=== PATIENT | male | born 1980 | race Caucasian/White ===

== ENCOUNTER 2018-06-20 10:54 | Emergency (ER) | payer BC ==
[2018-06-20 10:57] VITALS: BMI 27.1
[2018-06-20 10:59] VITALS: RESP 20; TEMP 98.7
[2018-06-20] MEDS ORDERED: Sodium Chloride 0.9% 1,000 ML ONE (11:50)
[2018-06-20] MEDS ORDERED: Sodium Chloride 0.9% 1,000 ML IV ONE (11:56)
--- NOTE | 2018-06-20 12:05 | C.PDOC ---
History Of Present Illness 38-year-old male presents to the emergency department with complaints of epigastric pain which radiates to his back and legs since Thursday06-16-18. Patient states that he took Omeprazole after which he feels better but reports feeling much worse today with severe nausea and vomiting. Patient denies fever, chills, urinary symptoms, and diarrhea. Patient has no history of abdominal surgery and denies drinking alcohol. Time Seen by Provider: 06/20/18 11:18 Chief Complaint (Nursing): Abdominal Pain History Per: Patient History/Exam Limitations: no limitations Onset/Duration Of Symptoms: Days (4) Current Symptoms Are (Timing): Worse Location Of Pain/Discomfort: Epigastric Quality Of Discomfort: "Pain" Associated Symptoms: Nausea, Vomiting. denies: Fever, Chills, Urinary Symptoms Past Medical History Reviewed: Historical Data, Nursing Documentation, Vital Signs Vital Signs: Last Vital Signs Temp 98.7 F 06/20/18 10:57 Pulse 82 06/20/18 10:57 Resp 20 06/20/18 10:57 BP 132/83 06/20/18 10:57 Pulse Ox 100 06/20/18 10:57 - Medical History PMH: Gastritis Surgical History: No Surg Hx Family History: States: No Known Family Hx - Social History Hx Alcohol Use: Yes Hx Substance Use: No - Immunization History Hx Influenza Vaccination: Yes Hx Pneumococcal Vaccination: No Review Of Systems Constitutional: Negative for: Fever, Chills Gastrointestinal: Positive for: Nausea, Vomiting, Abdominal Pain Genitourinary: Negative for: Dysuria, Frequency, Incontinence Physical Exam - Physical Exam Appears: Non-toxic, Other (actively retching) Skin: Normal Color, Warm, Dry Head: Atraumatic, Normacephalic Eye(s): bilateral: Normal Inspection, PERRL, EOMI Oral Mucosa: Moist Neck: Normal, Supple Chest: Symmetrical, No Tenderness Cardiovascular: Rhythm Regular, No Murmur Respiratory: Normal Breath Sounds, No Rales, No Rhonchi, No Wheezing Gastrointestinal/Abdominal: Soft, Tenderness (epigastric and LUQ tenderness) Back: No CVA Tenderness Extremity: Normal ROM, No Tenderness, No Pedal Edema Neurological/Psych: Oriented x3, Normal Speech, Normal Cognition ED Course And Treatment - Laboratory Results Result Diagrams: 06/20/18 12:12 06/20/18 12:12 O2 Sat by Pulse Oximetry: 100 (RA) Pulse Ox Interpretation: Normal - Other Rad XR Obstructive Series X-Ray: Viewed By Me, Read By Radiologist Interpretation: IMPRESSION: Unremarkable radiographs of chest and abdomen. No evidence of mechanical bowel obstruction. - CT Scan/US CT Abdomen and Pelvis Other Rad Studies (CT/US): Read By Radiologist, Radiology Report Reviewed CT/US Interpretation: IMPRESSION: Mild right hydronephrosis and proximal hydroureter up to 3.9 millimeter calculus at the proximal portion of the right ureter. 2 millimeter nonobstructing calculus at the midpole of the right kidney. No evidence of other acute pathology in the abdomen and pelvis. Medical Decision Making Medical Decision Making: Plan: Chemistry Hematology XR Obstructive Series Pepcid 20mg IVP NaCl IV Fluids Zofran 4mg IVP Urinalysis 1255 pt with persistent vomiting and nausea after dose of zofran. reglan ivpb ordered., labs reviewed; pt with large hematuria; consideration for kidney stone. abdominal xray reviewed; large stool and paucity of bowel gas noted; will get non contrast ct to eval for kidney stone and sbo as well as any other a bdominal pathology. . Spoke with Dr. Reardon to clarify CT findings. Dr. Reardon stated that measure ments are not to be in centimeters, but rather in millimeters as seen on CT. Spoke with Dr. Keane who recommends 1gm Rocephin and Flomax to be given in ED. Patient is to f/u outpatient with rx for ceftin and flomax. Disposition Discussed With .: Edison Keane Doctor Will See Patient In The: Office - Disposition Referrals: Edison Keane MD [Staff Provider] - [facility] [Outside] Disposition: HOME/ ROUTINE Disposition Time: 16:03 Condition: IMPROVED Additional Instructions: Beber lquidos en aumento. Cuele la alurina y guarde la crescencio para llevarla al urlogo. Preeti antibiticos y flomax segn lo prescrito. [place] ibuprofeno 600 mg por va oral cada 6 horas. Joel un seguimiento con el Dr. Keane (urlogo) esta semana y tambin en la clnica emdical. Regrese a la mitzy de emergencias para un peor dolor u otras preocupaciones Drink increased fluids. Strain allurine and keep stone to bring to urologist. Take antibiotics and flomax as prescribed. Take ibuprofen 600 mg by mouth every 6 [address]. Follow up with Dr Keane (urologist) this week and in emdical clinic as well. Return to ER for worse pain or other concerns. Prescriptions: Cefuroxime Axetil [Cefuroxime] 500 mg PO BID #20 tablet Ibuprofen [Motrin] 600 mg PO TID #50 tab Tamsulosin [Flomax] 0.4 mg PO DAILY #30 cap Instructions: Renal Colic (DC), How to Strain Your Urine Forms: Gen Discharge Inst Dive[facility], [facility] [facility] (Divehi), Work Excuse - Clinical Impression Clinical Impression: Renal colic on right side, Ureteral calculus, right - PA / OPERATIONS EXECUTIVE / Resident Statement MD/DO has reviewed & agrees with the documentation as recorded. - Scribe Statement The provider has reviewed the documentation as recorded by the Scribe (Cirilo Santoyo) All medical record entries made by the Scribe were at my direction and personally dictated by me. I have reviewed the chart and agree that the record accurately reflects my personal performance of the history, physical exam, medical decision making, and the department course for this patient. I have also personally directed, reviewed, and agree with the discharge instructions and disposition.
[2018-06-20 12:19] LABS: BASO % 0.2 % (0.0-2.0); EOS % 0.1 % (0.0-4.0); LYMPH # 1.1 K/uL (1.0-4.3); LYMPH % 12.1 % (20.0-40.0); MEAN CELL VOLUME 84.3 fL (80.0-94.0); MEAN CORPUSCULAR HEMOGLOBIN 29.3 pg (27.0-31.0); MEAN CORPUSCULAR HGB CONC 34.8 g/dL (33.0-37.0); MEAN PLATELET VOLUME 9.6 fL (7.2-11.7); MONO # 0.5 K/uL (0.0-0.8); MONO % 5.5 % (0.0-10.0); NEUT # 7.4 K/uL (1.8-7.0); NEUT % 82.1 % (50.0-75.0); NRBC % 0.2 % (0.0-2.0); RBC 5.47 Mil/uL (4.40-5.90); RED CELL DISTRIBUTION WIDTH 15.1 % (11.5-14.5)
[2018-06-20 12:30] LABS: ALB/GLOB RATIO 1.4 (1.0-2.1); ALBUMIN 4.9 g/dL (3.5-5.0); ALT/SGPT 34 U/L (21-72); AST/SGOT 30 U/L (17-59); BLOOD UREA NITROGEN 24 mg/dL (9-20); GFR NON-AFRICAN AMERICAN > 60; LIPASE 104 U/L (23-300)
[2018-06-20 12:35] LABS: SQUAMOUS EPITHIAL < 1 /hpf (0-5); URINE BILIRUBIN NEGATIVE (NEGATIVE); URINE BLOOD 1+ (NEGATIVE); URINE CLARITY Clear (Clear); URINE COLOR Yellow (YELLOW); URINE GLUCOSE (UA) NORMAL (Normal); URINE LEUKOCYTE ESTERASE NEG Leu/uL (Negative); URINE PROTEIN 2+ mg/dL (NEGATIVE); URINE UROBILINOGEN NORMAL mg/dL (0.2-1.0)
--- NOTE | 2018-06-20 13:26 | RAD ---
Date of service: 06/20/2018 PROCEDURE: Radiographs of the chest and abdomen (obstructive series) HISTORY: vomiting constipated COMPARISON: No prior. TECHNIQUE: AP radiograph of the chest, with upright and supine radiographs of the abdomen. 3 views obtained. FINDINGS: CHEST: Lungs: Clear. Cardiovascular: Normal size heart. No pulmonary vascular congestion. No aortic atherosclerotic calcification present Pleura: No pleural fluid. No pneumothorax. Other findings: None. ABDOMEN AND PELVIS: Bowel: Unremarkable bowel gas pattern. No evidence of mechanical obstruction. Free air: None. Bones: Unremarkable. Other findings: None. IMPRESSION: Unremarkable radiographs of chest and abdomen. No evidence of mechanical bowel obstruction.
--- NOTE | 2018-06-20 14:13 | CT ---
Date of service: 06/20/2018 PROCEDURE: CT Abdomen and Pelvis without intravenous contrast HISTORY: hematuria vomiting ab pain COMPARISON: None. TECHNIQUE: Axial and reformatted coronal and sagittal CT images of the abdomen and pelvis were obtained without IV or oral contrast administration.. Contrast dose: 0 Radiation dose: Total exam DLP = 584.44 mGy-cm. This CT exam was performed using one or more of the following dose reduction techniques: Automated exposure control, adjustment of the mA and/or kV according to patient size, and/or use of iterative reconstruction technique. FINDINGS: LOWER THORAX: Unremarkable. LIVER: Unremarkable. No gross lesion or ductal dilatation. GALLBLADDER AND BILE DUCTS: Unremarkable. PANCREAS: Unremarkable. No gross lesion or ductal dilatation. SPLEEN: Unremarkable. ADRENALS: Unremarkable. No mass. KIDNEYS AND URETERS: There is mild right hydronephrosis and proximal hydroureter up to 3.9 centimeter calculus at the proximal right ureter. The left kidney and ureter are unremarkable. VASCULATURE: Unremarkable. No aortic aneurysm. No aortic atherosclerotic calcification or mural plaque present. BOWEL: Unremarkable. No obstruction. No gross mural thickening. APPENDIX: Unremarkable. Normal appendix. PERITONEUM: Unremarkable. No free fluid. No free air. LYMPH NODES: Unremarkable. No enlarged lymph nodes. BLADDER: Unremarkable. REPRODUCTIVE: Unremarkable. BONES: No acute fracture. OTHER FINDINGS: None. IMPRESSION: Mild right hydronephrosis and proximal hydroureter up to 3.9 millimeter calculus at the proximal portion of the right ureter. 2 millimeter nonobstructing calculus at the midpole of the right kidney. No evidence of other acute pathology in the abdomen and pelvis.
[2018-06-20 14:46] VITALS: O2SAT 100
[2018-06-20 16:51] VITALS: BP 114/66; PULSE 98
== END 2018-06-20 17:07 | disposition home or self-care (01) ==
LOC: C.ER 10:54
DX: N13.2 Hydronephrosis with renal and ureteral calculous obstruction (principal)
CPT/HCPCS: 74022; 74176; 80053; 81001; 83690; 85025; 96361; 96365; 96375; 99285; J0696; J1885; J2405; J2765; J7030